=== PATIENT | male | born 1940 | race Caucasian/White ===

== ENCOUNTER → 2022-09-07 09:08 | Outpatient (CLI) | payer OTHER, SELFPAY ==
--- NOTE | 2022-09-07 09:10 | DI.MRI.S_ITS ---
PROCEDURE: MR PELIS WO/W CON INDICATIONS: PROSTATE PROTOCOL TECHNIQUE: Coronal HASTE, axial T1 FSE with fat saturation, 3-plane nonbreath-hold T2 FSE. After the administration of contrast, dynamic axial, delayed axial and coronal VIBE or 2-D FLASH with fat saturation through the pelvis. Optional diffusion weighted imaging and ADC may be performed. COMPARISON: PMS a PET 08/24/2022. FINDINGS: Image quality: Diffusion weighted and dynamic contrast enhanced images are diagnostic. Prostate: Gland size is 5.5 x 3.3 x 5.3 cm; ellipsoid gland volume is 50 mL. There is a hydrocele spacer posterior to the prostate, adequately the central posterior prostate from the adjacent rectum. Lesion 1: Location: Left anterior transition zone, apex (series 4, image 15) Size: 1.3 x 0.7 centimeter T2 signal: Ill-defined, hypointense DWI: Markedly hyperintense ADC: Markedly hypointense Enhancement: Positive Extracapsular extension: No PI-RADS score: 4 Lesion 2: Location: Right anterior transition zone, apex (series 4, image 14 and series 6, image 11) Size: 1.0 x 0.7 centimeter T2 signal: Partially capsulated nodule DWI: Markedly hyperintense ADC: Markedly hypointense Enhancement: Positive Extracapsular extension: No PI-RADS score: 3 Genitourinary system: Bladder wall thickness is normal. Distal ureters are non distended. Bowel and peritoneum: No pathologic free pelvic fluid. Inferior colon and small bowel loops are normal in caliber. Nodes and vessels: No pelvic or inguinal adenopathy by size criteria. Iliac vessels are normal in caliber. Soft tissues: Large, fat containing inguinal hernias. Bones: Marrow demonstrates normal overall signal, without lesions to suggest metastases. IMPRESSION: 1. PI-RADS lesions, as above, corresponding to PMSA study. 2. Hydrocele spacer, with adequate apposition of the rectal wall. Dictated by: Mateusz Prajapati M.D. on 09/07/2022 at 11:59 Approved by: Mateusz Prajapati M.D. on 09/07/2022 at 12:14
== END ==
PROVIDERS: PCP Emergency Medicine; Referring Provider Specialist; Visit Provider Specialist
DX: C61 Malignant neoplasm of prostate (principal); Z96.0 Presence of urogenital implants; R97.20 Elevated prostate specific antigen [PSA]
CPT/HCPCS: 72197; 99215; A9579